=== PATIENT | female | born 1980 | race Caucasian/White ===

== ENCOUNTER 2017-02-11 15:21 | Emergency (ER) | payer OTHER ==
[~2017-02-11] VITALS: Ht 170.2 cm; Wt 52.0 kg
[~2017-02-11 15:21] MED LIST: ATARAX,VISTARIL50 MG PO; CARAFATE1 GM PO; CLEOCIN300 MG PO; FLUOXETINE HCL20 M1 PO; LINZESS290 MCG PO; LUVOX50 MG PO; NEXIUM40 MG PO; SEROQUEL100 MG PO; VALIUM10 MG PO; VITAMIN B-150 MG PO; XANAX XR1 MG PO
[2017-02-11] MEDS ORDERED: DILAUDID4 MG PO (17:52)
[2017-02-11] MEDS ORDERED: MOTRIN600 MG PO (17:52)
[2017-02-11 18:11] VITALS: BP 129/93
== END 2017-02-11 18:21 | disposition home or self-care (01) ==
LOC: EME 15:21
DX: S20.212A Contusion of left front wall of thorax, initial encounter (principal); W18.30XA Fall on same level, unspecified, initial encounter; Y93.K1 Activity, walking an animal; Z85.72 Personal history of non-Hodgkin lymphomas; Z85.41 Personal history of malignant neoplasm of cervix uteri; Z92.21 Personal history of antineoplastic chemotherapy; Z88.5 Allergy status to narcotic agent
CPT/HCPCS: 71020; 99281; 99284

== ENCOUNTER 2017-05-05 13:53 | Emergency (ER) | payer OTHER ==
[~2017-05-05] VITALS: Ht 170.2 cm; Wt 51.0 kg
[~2017-05-05 13:53] MED LIST changes: +DILAUDID4 MG PO; +MOTRIN600 MG PO
[2017-05-05 14:53] LABS: HEMATOCRIT 36.4 % (36.0-46.0); HEMOGLOBIN 12.3 G/DL (11.9-15.5); MCH 28.8 PG (29.0-34.0); MCHC 33.8 G/DL (30.0-36.0); MCV 85.2 FL (83-99); PLATELET COUNT 251 K/uL (156-360); RBC DIS.WIDTH-CV 12.1 % (11.8-14.6); RBC DIS.WIDTH-SD 37.2 % (39-53); RED BLOOD COUNT 4.27 M/uL (3.80-5.20); WHITE BLOOD COUNT 3.5 K/uL (4.1-10.2)
[2017-05-05 15:02] LABS: CHLORIDE 102 mEq/L (99-109); POTASSIUM 3.8 mEq/L (3.7-5.4); SODIUM 137 mEq/L (136-147)
[2017-05-05 15:04] LABS: GLUCOSE 94 mg/dL (70-99)
[2017-05-05 15:07] LABS: CREATININE 0.7 mg/dL (0.6-1.3); GFR ESTIMATE (CALCULATED) > 59 mL/min/
[2017-05-05 15:08] LABS: UREA NITROGEN (BUN) 8 mg/dL (9-23)
[2017-05-05 15:13] LABS: INTER. NORMALIZED RATIO 1.1
[2017-05-05 15:14] LABS: TROP-I INTERPRETATION NEGATIVE; TROPONIN-I 0.02 ng/mL (0.0-0.30)
[2017-05-05 15:16] LABS: PTT 31.5 SEC (25-37)
[2017-05-05] MEDS ORDERED: ULTRAM50 MG PO (17:23)
[2017-05-05 18:03] VITALS: BP 114/67
== END 2017-05-05 18:07 | disposition home or self-care (01) ==
LOC: EME 13:53
PROVIDERS: Emergency Medicine
DX: S22.32XA Fracture of one rib, left side, initial encounter for closed fracture (principal); Z85.71 Personal history of Hodgkin lymphoma; Z85.41 Personal history of malignant neoplasm of cervix uteri; Z90.49 Acquired absence of other specified parts of digestive tract; Z88.5 Allergy status to narcotic agent
CPT/HCPCS: 71046; 71260; 80048; 84484; 85027; 85610; 85730; 93005; 99281; 99285; J1200; J2270; J3010; J7030